=== PATIENT | female | born 1965 | race Caucasian/White ===

== ENCOUNTER 2017-04-22 14:55 | Inpatient (IN) | payer MEDICAID, MEDICARE | END 2017-04-23 08:00 | disposition home or self-care (01) | DRG 951 | LOC: VM.MS 14:55 | PROVIDERS: ADMIT Family Medicine ==

== ENCOUNTER 2017-04-23 08:49 | Day surgery (SDC) | payer MEDICARE, MEDICAID ==
[~2017-04-23 08:49] MED LIST: Lactated Ringers 1,000 ML IV SCH
[2017-04-23] MEDS ORDERED: fentaNYL 100 MCG/2 ML SDV ONE (09:24)
[2017-04-23] MEDS ORDERED: Midazolam 1 MG/ML 2 ML SDV ONE (09:24)
[2017-04-23] MEDS ORDERED: Propofol 200 MG/20 ML SDV ONE (09:25)
[2017-04-23 10:30] VITALS: BP 118/73
--- NOTE | 2017-04-24 08:19 | OR ---
PREOPERATIVE DIAGNOSIS: Screening colonoscopy. POSTOPERATIVE DIAGNOSIS: Normal colonoscopic exam. PROCEDURE PROPOSED: Total flexible colonoscopy. PROCEDURE DONE: Total flexible colonoscopy. INDICATION: This is a 52-year-old female referred for a recommended screening colonoscopy. She denies any symptomatology, and there is a negative family history for colon cancer. TECHNIQUE: The patient was brought to the endoscopy suite, placed in the left lateral decubitus position. She was given propofol per DIRECTOR LOSS PREVENTION. The flexible video colonoscope was then passed transanally and under visualization advanced to the cecum. Examination revealed the normal ascending, transverse, descending, sigmoid, and rectal colon. There was no evidence of any polyps, colitis, or other abnormalities. She tolerated the procedure very well. IMPRESSION: Essentially normal colonoscopic exam. PLAN: The patient is reassured. I felt she could wait 10 years before she needs a repeat exam. SCM: 04/23/2017 10:05:33 MODL: 04/23/2017 12:29:34 /[id number]
== END 2017-04-23 11:00 ==
LOC: VM.SDS 08:49
PROVIDERS: ATTEND Surgery
DX: Z12.11 Encounter for screening for malignant neoplasm of colon (principal); E66.9 Obesity, unspecified; Z79.899 Other long term (current) drug therapy
CPT/HCPCS: 00810; G0121; J2250; J2704; J3010; J7120

== ENCOUNTER 2022-11-02 08:38 | Emergency (ER) | payer MEDICARE, MEDICAID ==
[2022-11-02] MEDS ORDERED: Sodium Chloride 0.9% 10 ML Syringe FLUSH PRN (09:00)
[2022-11-02] MEDS: Albuterol/Ipratropium 3.0-0.5 MG/3 ML Neb Soln NEB ONE (09:20)
[2022-11-02 09:26] LABS: CHLORIDE,CL 103 mmol/L (98-107); ESTIMATED GFR 35 mL/min (>=60); SODIUM,NA 142 mmol/L (136-145)
[2022-11-02] MEDS ORDERED: Piperacillin/Tazobactam 4.5 GM in Sodium Chloride 0.9% 100 ML IV SCH (09:45)
[2022-11-02] MEDS: Piperacillin/Tazobactam 3.375 GM in Sodium Chloride 0.9% 100 ML IV SCH (10:05)
[2022-11-02] MEDS: Sodium Chloride 0.9% 1,000 ML IV ONE (10:05)
[2022-11-02 10:34] LABS: CORONAVIRUS COVID-19 NAA NEGATIVE (NEGATIVE); RESPIRATORY SYNCYTIAL VIR NAA NEGATIVE (NEGATIVE)
[2022-11-03] MEDS: Sodium Chloride 0.9% 1,000 ML IV ONE (15:08)
[2022-11-03 15:39] VITALS: BP 96/48; PULSE 98
== END 2022-11-02 11:27 | disposition short-term general hospital (02) ==
LOC: VM.ED 08:38
DX: A41.9 Sepsis, unspecified organism (principal); R65.21 Severe sepsis with septic shock; N17.9 Acute kidney failure, unspecified; J18.9 Pneumonia, unspecified organism; E66.9 Obesity, unspecified; Z68.30 Body mass index [BMI] 30.0-30.9, adult; Z20.822 Contact with and (suspected) exposure to COVID-19
CPT/HCPCS: 0241U; 36415; 71046; 80053; 83605; 84484; 85025; 85610; 87040; 94640; 96361; 96365; 99284; 99285-25; J2543; J7030; J7050; J7620-GY

== ENCOUNTER 2024-07-20 02:48 | Emergency (ER) | payer MEDICARE, MEDICAID ==
[2024-07-20 03:24] VITALS: PULSE 55
[2024-07-20 04:07] VITALS: BP 110/71
== END 2024-07-20 03:51 | disposition home or self-care (01) ==
LOC: VM.ED 02:48
DX: K62.3 Rectal prolapse (principal); E66.9 Obesity, unspecified; Z68.42 Body mass index [BMI] 45.0-49.9, adult; Z79.899 Other long term (current) drug therapy
CPT/HCPCS: 99284

== ENCOUNTER 2024-08-25 15:17 | Emergency (ER) | payer MEDICARE, MEDICAID ==
[2024-08-25 15:53] LABS: BASOPHILS PERCENT AUTO 0.3 % (0.2-1.2); EOSINOPHILS ABSOLUTE AUTO 0.3 x10^3/uL (0.0-0.5); EOSINOPHILS PERCENT AUTO 2.7 % (0.0-4.0); HEMATOCRIT 35.1 % (33.0-47.0); IMMATURE GRAN ABSOLUTE AUTO 0.01 x10^3/uL (0.00-0.07); LYMPHOCYTES ABSOLUTE AUTO 2.2 x10^3/uL (1.0-4.8); LYMPHOCYTES PERCENT AUTO 18.2 % (25.0-50.0); MEAN CORPUSCULAR HEMOGLOBIN 33.4 pg (26.0-32.0); MEAN CORPUSCULAR HGB CONC 34.2 g/dL (32.0-36.0); MEAN CORPUSCULAR VOLUME 97.8 fL (78.0-93.0); MONOCYTES ABSOLUTE AUTO 0.5 x10^3/uL (0.0-0.8); MONOCYTES PERCENT AUTO 4.5 % (2.0-11.0); NEUTROPHILS ABSOLUTE AUTO 8.8 x10^3/uL (1.8-7.7); NEUTROPHILS PERCENT AUTO 74.2 % (50.0-80.0); PLATELET COUNT,PLT 252 x10^3/uL (130-400); RED BLOOD CELL COUNT 3.59 x10^6/uL (4.00-5.50); WHITE BLOOD CELL COUNT,WBC 11.9 x10^3/uL (4.0-10.0)
[2024-08-25 16:13] LABS: A/G RATIO 0.55; ALANINE AMINOTRANSFERASE,ALT 20 U/L (14-59); ALBUMIN 2.7 g/dL (3.4-5.0); ALKALINE PHOSPHATASE 88 U/L (46-116); ASPARTATE AMNIOTRANSFERASE,AST 22 U/L (15-37); BILIRUBIN TOTAL 0.4 mg/dL (0.2-1.0); BLOOD UREA NITROGEN,BUN 12 mg/dL (7-18); CALCIUM 8.4 mg/dL (8.5-10.1); CARBON DIOXIDE,CO2 33 mmol/L (21-32); CHLORIDE,CL 96 mmol/L (98-107); CREATININE 1.1 mg/dL (0.55-1.02); GLUCOSE RANDOM 84 mg/dL (70-99); POTASSIUM,K 4.5 mmol/L (3.5-5.1); PROTEIN TOTAL,TP 7.6 g/dL (6.4-8.2); SODIUM,NA 134 mmol/L (136-145)
[2024-08-25 16:15] LABS: ANION GAP 9.5 mmol/L (5-15); ESTIMATED GFR 58 mL/min (>=60)
[2024-08-25] MEDS ORDERED: cefTRIAXone 1 GM Vial IVPUSH SCH (16:30)
[2024-08-25] MEDS: Take Home: Azithromycin 250 MG, 2 Tab Pack PO ONE (16:44)
[2024-08-25] MEDS: Azithromycin 250 MG Tab PO ONE (16:44)
[2024-08-25] MEDS: cefTRIAXone 1 GM Vial IM ONE (16:44)
[2024-08-25 17:17] VITALS: BP 120/72; PULSE 76
== END 2024-08-25 17:00 ==
LOC: VM.ED 15:17
DX: J69.0 Pneumonitis due to inhalation of food and vomit (principal); E66.9 Obesity, unspecified; Z79.899 Other long term (current) drug therapy; Z68.24 Body mass index [BMI] 24.0-24.9, adult
CPT/HCPCS: 36415; 80053; 83605; 85025; 87428; 96372; 99285; A9270; J0696; 71045

== ENCOUNTER 2024-09-04 11:29 | Inpatient (IN) | payer MEDICARE, MEDICAID ==
[2024-09-04] MEDS ORDERED: Sodium Chloride 0.9% 10 ML Syringe FLUSH PRN (12:24)
[2024-09-04] MEDS: Lactated Ringers 500 ML IV ONE (12:30)
[2024-09-04 12:44] LABS: MEAN CORPUSCULAR HEMOGLOBIN 33.3 pg (26.0-32.0); MEAN CORPUSCULAR HGB CONC 34.3 g/dL (32.0-36.0); MEAN CORPUSCULAR VOLUME 97.2 fL (78.0-93.0); PLATELET COUNT,PLT 311 x10^3/uL (130-400)
[2024-09-04 12:48] LABS: WHITE BLOOD CELL COUNT,WBC 28.9 x10^3/uL (4.0-10.0)
[2024-09-04 13:07] LABS: BAND PERCENT MAN 3 % (0-6); LYMPHOCYTES ABSOLUTE MAN 1.2 x10^3/uL (1.0-4.8); LYMPHOCYTES PERCENT MAN 4 % (25-50); MONOCYTES ABSOLUTE MAN 0.6 x10^3/uL (0.0-0.8); MONOCYTES PERCENT MAN 2 % (2-11); NEUTROPHILS ABSOLUTE MAN 27.2 x10^3/uL (1.8-7.7); PLATELET COUNT ESTIMATE ADEQUATE; SEG NEUTROPHILS PERCENT MAN 91 % (50-80)
[2024-09-04 13:12] LABS: A/G RATIO 0.56; ALANINE AMINOTRANSFERASE,ALT 26 U/L (14-59); ALBUMIN 2.5 g/dL (3.4-5.0); ALKALINE PHOSPHATASE 86 U/L (46-116); ASPARTATE AMNIOTRANSFERASE,AST 26 U/L (15-37); BILIRUBIN TOTAL 0.7 mg/dL (0.2-1.0); BLOOD UREA NITROGEN,BUN 15 mg/dL (7-18); CALCIUM 8.5 mg/dL (8.5-10.1); CARBON DIOXIDE,CO2 32 mmol/L (21-32); CHLORIDE,CL 96 mmol/L (98-107); CREATININE 1.4 mg/dL (0.55-1.02); GLUCOSE RANDOM 150 mg/dL (70-99); POTASSIUM,K 4.4 mmol/L (3.5-5.1); PRO B-TYPE NATRIUR PEPT,BNPPRO 1600 pg/mL (<=125); SODIUM,NA 136 mmol/L (136-145)
[2024-09-04 13:13] LABS: ANION GAP 12.4 mmol/L (5-15); ESTIMATED GFR 43 mL/min (>=60)
[2024-09-04 13:15] LABS: CORONAVIRUS COVID-19 NAA NEGATIVE (NEGATIVE); INFLUENZA A NAA NEGATIVE (NEGATIVE); INFLUENZA B NAA NEGATIVE (NEGATIVE)
[2024-09-04] MEDS ORDERED: Meropenem 1 GM in Sodium Chloride 0.9% 100 ML IV SCH (14:30)
[2024-09-04] MEDS: Lactated Ringers 1,000 ML IV SCH (14:50)
[2024-09-04] MEDS: Meropenem 500 MG in Sodium Chloride 0.9% 100 ML IV ONE (15:55)
[2024-09-04] MEDS ORDERED: Loratadine 10 MG Tab PO PRN (16:50)
[2024-09-04] MEDS ORDERED: Non-Formulary Medication 1 Each (Carboxymethylcellulose Sodium [Refresh Tears] 15 ML Drops EYEBOTH PRN (16:50)
[2024-09-04] MEDS ORDERED: guaiFENesin 100 MG/5 ML Soln 10 ML UD Cup PO PRN (16:50)
[2024-09-04] MEDS ORDERED: Acetaminophen 325 MG Tab PO PRN (16:50)
[2024-09-04] MEDS ORDERED: Docusate Sodium 100 MG Cap PO PRN (16:50)
[2024-09-04] MEDS: Levofloxacin/Dextrose 5%-Water 750 MG in Premix Bag 1 BAG IV SCH (17:00)
[2024-09-04] MEDS ORDERED: Lactulose Soln 10 GM/15 ML 15 ML UD Cup PO PRN (18:08)
[2024-09-04] MEDS ORDERED: Hypromellose 0.3% Ophth Soln 15 ML Bottle EYEBOTH PRN (18:14)
[2024-09-04 18:22] LABS: LACTIC ACID 3.1 mmol/L (0.4-2.0)
[2024-09-04] MEDS: Albuterol/Ipratropium 3.0-0.5 MG/3 ML Neb Soln NEB SCH (19:49)
[2024-09-04] MEDS: Acetaminophen 325 MG Tab PO SCH (20:06)
[2024-09-04] MEDS: Meropenem 500 MG in Sodium Chloride 0.9% 100 ML IV SCH (20:07)
[2024-09-04] MEDS: QUEtiapine 25 MG Tab PO SCH (20:07)
[2024-09-04] MEDS: traZODone 50 MG Tab PO SCH (20:08)
[2024-09-05] MEDS: methylPREDNISolone Sodium Succinate 125 MG/2 ML SDV ONE (07:07)
[2024-09-05] MEDS: Furosemide 40 MG/4 ML VIAL ONE (07:07)
[2024-09-05 07:58] LABS: HEMATOCRIT 35.8 % (33.0-47.0); HEMOGLOBIN 11.9 g/dL (12.0-16.0); MEAN CORPUSCULAR HEMOGLOBIN 33.3 pg (26.0-32.0); MEAN CORPUSCULAR HGB CONC 33.2 g/dL (32.0-36.0); MEAN CORPUSCULAR VOLUME 100.3 fL (78.0-93.0); RED BLOOD CELL COUNT 3.57 x10^6/uL (4.00-5.50); WHITE BLOOD CELL COUNT,WBC 15.7 x10^3/uL (4.0-10.0)
[2024-09-05] MEDS: VANCOmycin 1 GM in Sodium Chloride 0.9% 250 ML IV ONE (08:01)
[2024-09-05] MEDS ORDERED: Naloxone 0.4 MG/ML SDV IVPUSH PRN (08:16)
[2024-09-05 08:18] LABS: ANION GAP 8.6 mmol/L (5-15); CALCIUM 8.4 mg/dL (8.5-10.1); EST CRCL DRUG DOSING (CG) 43.51 mL/min; POTASSIUM,K 4.6 mmol/L (3.5-5.1)
[2024-09-05 08:22] LABS: HCO3 VENOUS,POC 35 mmol/L (22-29); O2 SATURATION VENOUS,POC 100 %; PCO2 VENOUS,POC 62 mmHg (41-51); PH VENOUS,POC 7.36 pH (7.32-7.43); PO2 VENOUS,POC 304 mmHg
[2024-09-05] MEDS: Morphine 2 MG/ML SYRINGE IVPUSH ONE ×2 (08:24→11:15)
[2024-09-05] MEDS: Albuterol/Ipratropium 3.0-0.5 MG/3 ML Neb Soln NEB PRN (08:30)
[2024-09-05] MEDS: Furosemide 20 MG/2 ML VIAL IV ONE (08:31)
[2024-09-05] MEDS: methylPREDNISolone Sodium Succinate 40 MG/1 ML SDV IVPUSH ONE (08:31)
[2024-09-05] MEDS ORDERED: Flumazenil 0.1 MG/ML 5 ML MDV IVPUSH PRN (09:49)
[2024-09-05] MEDS: LORazepam 2 MG/ML SDV IVPUSH PRN (10:01)
[2024-09-05] MEDS: Donepezil 10 MG Tab PO SCH (12:11)
[2024-09-05] MEDS: Famotidine 20 MG Tab PO SCH (12:20)
[2024-09-05] MEDS: Multivitamin Tab PO SCH (12:21)
[2024-09-05] MEDS: Allopurinol 100 MG Tab PO SCH (12:24)
[2024-09-05] MEDS: Enoxaparin 30 MG/0.3 ML Syringe SUBCUT SCH ×2 (12:32→12:34)
[2024-09-05] MEDS ORDERED: Sodium Chloride 0.9% Inhalation Soln 5 ML Neb INH PRN ×2 (15:10→17:36)
[2024-09-05] MEDS: Racepinephrine 2.25% 0.5 ML Neb Soln NEB ONE (15:10)
[2024-09-05] MEDS: Morphine 2 MG/ML SYRINGE IVPUSH PRN (20:22)
[2024-09-06 07:13] LABS: HEMATOCRIT 34.5 % (33.0-47.0); HEMOGLOBIN 10.9 g/dL (12.0-16.0); MEAN CORPUSCULAR HEMOGLOBIN 33.2 pg (26.0-32.0); MEAN CORPUSCULAR HGB CONC 31.6 g/dL (32.0-36.0); MEAN CORPUSCULAR VOLUME 105.2 fL (78.0-93.0); RED BLOOD CELL COUNT 3.28 x10^6/uL (4.00-5.50)
[2024-09-06 07:21] LABS: ANION GAP 6.8 mmol/L (5-15); CALCIUM 8.9 mg/dL (8.5-10.1); CREATININE 1.1 mg/dL (0.55-1.02); EST CRCL DRUG DOSING (CG) 39.55 mL/min; POTASSIUM,K 4.8 mmol/L (3.5-5.1)
[2024-09-06] MEDS: VANCOmycin 750 MG in Sodium Chloride 0.9% 250 ML IV SCH (08:31)
[2024-09-06] MEDS ORDERED: Simethicone 80 MG Tab.Chew PO PRN (08:32)
[2024-09-06] MEDS ORDERED: Mineral Oil/Petrolatum,White Crm 454 GM Jar TOP PRN (08:39)
[2024-09-06] MEDS: SODIUM FLUORIDE DENT SCH (11:07)
[2024-09-06] MEDS: Piperacillin/Tazobactam 4.5 GM in Sodium Chloride 0.9% 100 ML IV SCH (20:36)
[2024-09-06] MEDS: Acetaminophen 650 MG Supp RECTAL PRN (21:07)
[2024-09-06] MEDS: Racepinephrine 2.25% 0.5 ML Neb Soln NEB PRN (23:24)
[2024-09-07 07:00] LABS: BASOPHILS PERCENT AUTO 0.4 % (0.2-1.2); HEMATOCRIT 32.7 % (33.0-47.0); HEMOGLOBIN 10.3 g/dL (12.0-16.0); IMMATURE GRAN ABSOLUTE AUTO 0.03 x10^3/uL (0.00-0.07); LYMPHOCYTES ABSOLUTE AUTO 1.3 x10^3/uL (1.0-4.8); LYMPHOCYTES PERCENT AUTO 19.7 % (25.0-50.0); MEAN CORPUSCULAR HEMOGLOBIN 33.1 pg (26.0-32.0); MEAN CORPUSCULAR HGB CONC 31.5 g/dL (32.0-36.0); MEAN CORPUSCULAR VOLUME 105.1 fL (78.0-93.0); MONOCYTES ABSOLUTE AUTO 0.6 x10^3/uL (0.0-0.8); MONOCYTES PERCENT AUTO 9.1 % (2.0-11.0); NEUTROPHILS ABSOLUTE AUTO 4.8 x10^3/uL (1.8-7.7); NEUTROPHILS PERCENT AUTO 70.4 % (50.0-80.0); PLATELET COUNT,PLT 238 x10^3/uL (130-400); RED BLOOD CELL COUNT 3.11 x10^6/uL (4.00-5.50); WHITE BLOOD CELL COUNT,WBC 6.8 x10^3/uL (4.0-10.0)
[2024-09-07 07:14] LABS: CALCIUM 8.7 mg/dL (8.5-10.1); CREATININE 1.1 mg/dL (0.55-1.02); EST CRCL DRUG DOSING (CG) 39.55 mL/min; POTASSIUM,K 4.6 mmol/L (3.5-5.1)
[2024-09-07 07:16] LABS: ANION GAP 5.6 mmol/L (5-15)
[2024-09-07] MEDS: Furosemide 20 MG/2 ML VIAL IV SCH (11:10)
[2024-09-07] MEDS: Levofloxacin/Dextrose 5%-Water 750 MG in Premix Bag 1 BAG IV SCH (15:30)
[2024-09-08 06:50] LABS: HEMATOCRIT 35.2 % (33.0-47.0); HEMOGLOBIN 11.4 g/dL (12.0-16.0); MEAN CORPUSCULAR HEMOGLOBIN 32.9 pg (26.0-32.0); MEAN CORPUSCULAR HGB CONC 32.4 g/dL (32.0-36.0); MEAN CORPUSCULAR VOLUME 101.7 fL (78.0-93.0); RED BLOOD CELL COUNT 3.46 x10^6/uL (4.00-5.50); WHITE BLOOD CELL COUNT,WBC 4.8 x10^3/uL (4.0-10.0)
[2024-09-08 10:26] LABS: CALCIUM 8.8 mg/dL (8.5-10.1); CREATININE 1.3 mg/dL (0.55-1.02); EST CRCL DRUG DOSING (CG) 32.63 mL/min; POTASSIUM,K 3.8 mmol/L (3.5-5.1)
[2024-09-08 10:27] LABS: ANION GAP 9.8 mmol/L (5-15)
[2024-09-08] MEDS: Lactated Ringers 1,000 ML IV SCH (18:59)
[2024-09-09 06:48] LABS: BASOPHILS ABSOLUTE AUTO 0.1 x10^3/uL (0.0-0.2); BASOPHILS PERCENT AUTO 1.6 % (0.2-1.2); EOSINOPHILS PERCENT AUTO 0.8 % (0.0-4.0); HEMATOCRIT 34.8 % (33.0-47.0); HEMOGLOBIN 11.2 g/dL (12.0-16.0); IMMATURE GRAN ABSOLUTE AUTO 0.02 x10^3/uL (0.00-0.07); LYMPHOCYTES ABSOLUTE AUTO 1.3 x10^3/uL (1.0-4.8); LYMPHOCYTES PERCENT AUTO 32.6 % (25.0-50.0); MEAN CORPUSCULAR HEMOGLOBIN 32.8 pg (26.0-32.0); MEAN CORPUSCULAR HGB CONC 32.2 g/dL (32.0-36.0); MEAN CORPUSCULAR VOLUME 102.1 fL (78.0-93.0); MONOCYTES ABSOLUTE AUTO 0.5 x10^3/uL (0.0-0.8); MONOCYTES PERCENT AUTO 11.9 % (2.0-11.0); NEUTROPHILS PERCENT AUTO 52.6 % (50.0-80.0); PLATELET COUNT,PLT 205 x10^3/uL (130-400); RED BLOOD CELL COUNT 3.41 x10^6/uL (4.00-5.50); WHITE BLOOD CELL COUNT,WBC 3.9 x10^3/uL (4.0-10.0)
[2024-09-09 07:03] LABS: CALCIUM 8.7 mg/dL (8.5-10.1); CREATININE 1.3 mg/dL (0.55-1.02); EST CRCL DRUG DOSING (CG) 31.19 mL/min; POTASSIUM,K 3.3 mmol/L (3.5-5.1)
[2024-09-09 07:04] LABS: ANION GAP 6.3 mmol/L (5-15)
[2024-09-09 14:21] LABS: CALCIUM 8.9 mg/dL (8.5-10.1); CREATININE 1.3 mg/dL (0.55-1.02); EST CRCL DRUG DOSING (CG) 31.19 mL/min
[2024-09-09] MEDS: Potassium Chloride Riders 20 MEQ in Premix Bag 1 BAG IV SCH (17:23)
[2024-09-10 07:01] LABS: HEMATOCRIT 35.4 % (33.0-47.0); HEMOGLOBIN 11.1 g/dL (12.0-16.0); MEAN CORPUSCULAR HEMOGLOBIN 32.6 pg (26.0-32.0); MEAN CORPUSCULAR HGB CONC 31.4 g/dL (32.0-36.0); MEAN CORPUSCULAR VOLUME 103.8 fL (78.0-93.0); RED BLOOD CELL COUNT 3.41 x10^6/uL (4.00-5.50); WHITE BLOOD CELL COUNT,WBC 4.2 x10^3/uL (4.0-10.0)
[2024-09-10 07:16] LABS: CALCIUM 8.4 mg/dL (8.5-10.1); CREATININE 1.2 mg/dL (0.55-1.02); EST CRCL DRUG DOSING (CG) 34.7 mL/min
[2024-09-11 08:43] LABS: A/G RATIO 0.49; ALBUMIN 2.3 g/dL (3.4-5.0); ANION GAP 3.2 mmol/L (5-15); BILIRUBIN TOTAL 0.2 mg/dL (0.2-1.0); CALCIUM 8.4 mg/dL (8.5-10.1); CREATININE 1.2 mg/dL (0.55-1.02); EST CRCL DRUG DOSING (CG) 35.13 mL/min; MAGNESIUM 2.2 mg/dL (1.8-2.4); POTASSIUM,K 4.2 mmol/L (3.5-5.1)
[2024-09-12 08:32] LABS: BASOPHILS ABSOLUTE AUTO 0.1 x10^3/uL (0.0-0.2); BASOPHILS PERCENT AUTO 1.4 % (0.2-1.2); EOSINOPHILS ABSOLUTE AUTO 0.4 x10^3/uL (0.0-0.5); EOSINOPHILS PERCENT AUTO 9.5 % (0.0-4.0); HEMATOCRIT 36.9 % (33.0-47.0); IMMATURE GRAN ABSOLUTE AUTO 0.02 x10^3/uL (0.00-0.07); LYMPHOCYTES ABSOLUTE AUTO 1.4 x10^3/uL (1.0-4.8); LYMPHOCYTES PERCENT AUTO 37.1 % (25.0-50.0); MEAN CORPUSCULAR HGB CONC 32.5 g/dL (32.0-36.0); MEAN CORPUSCULAR VOLUME 101.4 fL (78.0-93.0); MONOCYTES ABSOLUTE AUTO 0.3 x10^3/uL (0.0-0.8); MONOCYTES PERCENT AUTO 8.1 % (2.0-11.0); NEUTROPHILS ABSOLUTE AUTO 1.6 x10^3/uL (1.8-7.7); NEUTROPHILS PERCENT AUTO 43.4 % (50.0-80.0); PLATELET COUNT,PLT 200 x10^3/uL (130-400); RED BLOOD CELL COUNT 3.64 x10^6/uL (4.00-5.50); WHITE BLOOD CELL COUNT,WBC 3.7 x10^3/uL (4.0-10.0)
[2024-09-12 08:52] LABS: A/G RATIO 0.62; ALBUMIN 2.4 g/dL (3.4-5.0); ANION GAP 4.4 mmol/L (5-15); BILIRUBIN TOTAL 0.2 mg/dL (0.2-1.0); CALCIUM 8.2 mg/dL (8.5-10.1); CREATININE 1.1 mg/dL (0.55-1.02); EST CRCL DRUG DOSING (CG) 38.45 mL/min; POTASSIUM,K 4.4 mmol/L (3.5-5.1); PROTEIN TOTAL,TP 6.3 g/dL (6.4-8.2)
[2024-09-12 14:45] VITALS: BP 100/70; PULSE 88
== END 2024-09-12 13:00 | DRG 871 ==
LOC: VM.ED 11:29 → VM.MS 14:14
PROVIDERS: ADMIT Nurse Practitioner Family; ATTEND Family Medicine
PROC: 5A0955A Assistance with Respiratory Ventilation, Greater than 96 Consecutive Hours, High Flow/Velocity Cannula (ICD-10-PCS; principal; 2024-09-06)
DX: A41.9 Sepsis, unspecified organism (principal); J18.9 Pneumonia, unspecified organism; J69.0 Pneumonitis due to inhalation of food and vomit; J96.01 Acute respiratory failure with hypoxia; E87.20 Acidosis, unspecified; E87.0 Hyperosmolality and hypernatremia; R65.20 Severe sepsis without septic shock; F02.80 Dementia in other diseases classified elsewhere, unspecified severity, without behavioral disturbance, psychotic disturbance, mood disturbance, and anxiety; M19.90 Unspecified osteoarthritis, unspecified site; H26.9 Unspecified cataract; E66.9 Obesity, unspecified; G30.0 Alzheimer's disease with early onset; N18.2 Chronic kidney disease, stage 2 (mild); I27.20 Pulmonary hypertension, unspecified; K59.09 Other constipation; K21.9 Gastro-esophageal reflux disease without esophagitis; J31.0 Chronic rhinitis; E79.0 Hyperuricemia without signs of inflammatory arthritis and tophaceous disease; K62.3 Rectal prolapse; Z66 Do not resuscitate; Z79.2 Long term (current) use of antibiotics; Z79.899 Other long term (current) drug therapy; Z68.26 Body mass index [BMI] 26.0-26.9, adult; Q90.9 Down syndrome, unspecified; Q30.0 Choanal atresia
CPT/HCPCS: 0240U; 36415; 71045; 80048; 80053; 80202; 82803; 83605; 83735; 83880; 85025; 85027; 87040; 87070; 87493; 92526-GN; 92610-GN; 94640; 94660; 94760; 96360; 99232; 99232-GT; 99238; 99284; 99285-25; A9270-GY; J1650; J1940; J1956; J2060; J2185; J2270; J2543; J2919; J3370; J3480; J3490; J7050; J7120; J7620-GY

== ENCOUNTER 2024-09-18 23:50 | Inpatient (IN) | payer MEDICARE, MEDICAID ==
[~2024-09-18 23:50] MED LIST changes: -Lactated Ringers 1,000 ML IV SCH; +Sodium Chloride 0.9% 10 ML Syringe FLUSH PRN
[2024-09-19 00:11] LABS: BASOPHILS ABSOLUTE AUTO 0.1 x10^3/uL (0.0-0.2); BASOPHILS PERCENT AUTO 0.6 % (0.2-1.2); EOSINOPHILS ABSOLUTE AUTO 0.2 x10^3/uL (0.0-0.5); EOSINOPHILS PERCENT AUTO 1.7 % (0.0-4.0); HEMATOCRIT 35.4 % (33.0-47.0); IMMATURE GRAN ABSOLUTE AUTO 0.01 x10^3/uL (0.00-0.07); LYMPHOCYTES ABSOLUTE AUTO 2.9 x10^3/uL (1.0-4.8); LYMPHOCYTES PERCENT AUTO 29.3 % (25.0-50.0); MEAN CORPUSCULAR HEMOGLOBIN 33.2 pg (26.0-32.0); MEAN CORPUSCULAR HGB CONC 33.9 g/dL (32.0-36.0); MEAN CORPUSCULAR VOLUME 98.1 fL (78.0-93.0); MONOCYTES ABSOLUTE AUTO 0.7 x10^3/uL (0.0-0.8); MONOCYTES PERCENT AUTO 6.5 % (2.0-11.0); NEUTROPHILS ABSOLUTE AUTO 6.2 x10^3/uL (1.8-7.7); NEUTROPHILS PERCENT AUTO 61.8 % (50.0-80.0); PLATELET COUNT,PLT 267 x10^3/uL (130-400); RED BLOOD CELL COUNT 3.61 x10^6/uL (4.00-5.50)
[2024-09-19 00:28] LABS: LACTIC ACID 1.7 mmol/L (0.4-2.0)
[2024-09-19 00:33] LABS: A/G RATIO 0.53; ALANINE AMINOTRANSFERASE,ALT 19 U/L (14-59); ALBUMIN 2.5 g/dL (3.4-5.0); ALKALINE PHOSPHATASE 92 U/L (46-116); ASPARTATE AMNIOTRANSFERASE,AST 24 U/L (15-37); BILIRUBIN TOTAL 0.2 mg/dL (0.2-1.0); BLOOD UREA NITROGEN,BUN 14 mg/dL (7-18); C-REACTIVE PROTEIN 6.29 mg/dL (<=0.50); CALCIUM 8.7 mg/dL (8.5-10.1); CARBON DIOXIDE,CO2 32 mmol/L (21-32); CHLORIDE,CL 101 mmol/L (98-107); CREATININE 1.2 mg/dL (0.55-1.02); GLUCOSE RANDOM 130 mg/dL (70-99); POTASSIUM,K 4.4 mmol/L (3.5-5.1); PRO B-TYPE NATRIUR PEPT,BNPPRO 1192 pg/mL (<=125); PROTEIN TOTAL,TP 7.2 g/dL (6.4-8.2); SODIUM,NA 139 mmol/L (136-145)
[2024-09-19 00:38] LABS: ANION GAP 10.4 mmol/L (5-15); ESTIMATED GFR 52 mL/min (>=60)
[2024-09-19] MEDS: Clindamycin Phosphate in D5W 600 MG in Premix Bag 1 BAG IV ONE (01:22)
[2024-09-19] MEDS: cefTRIAXone 2 GM Vial IVPUSH ONE (01:22)
[2024-09-19] MEDS ORDERED: Acetaminophen 325 MG Tab PO PRN (03:17)
[2024-09-19] MEDS ORDERED: Acetaminophen 650 MG Supp RECTAL PRN (03:17)
[2024-09-19] MEDS ORDERED: Non-Formulary Medication 1 Each (Carboxymethylcellulose Sodium [Refresh Tears] 15 ML Drops EYEBOTH PRN (03:27)
[2024-09-19] MEDS: Ampicillin/Sulbactam Na 3 GM in Sodium Chloride 0.9% 100 ML IV SCH (04:02)
[2024-09-19 05:00] LABS: BASE EXCESS ARTERIAL,POC 5 mmol/L ((-2)-3); HCO3 ARTERIAL,POC 32.5 mmol/L (21-28); O2 SATURATION ARTERIAL,POC 97.9 % (94-98); PCO2 ARTERIAL,POC 83 mmHg (35-48); PO2 ARTERIAL,POC 130 mmHg (83-108); TCO2 ARTERIAL,POC 32.6 mmol/L (22-29)
[2024-09-19 05:10] LABS: LACTIC ACID 1.7 mmol/L (0.4-2.0)
[2024-09-19] MEDS: Heparin Sodium 5,000 Units/ML Vial SUBCUT SCH (05:29)
[2024-09-19] MEDS: Albuterol/Ipratropium 3.0-0.5 MG/3 ML Neb Soln NEB PRN (05:45)
[2024-09-19] MEDS ORDERED: methylPREDNISolone Sod Succ 125 MG in Sodium Chloride 0.9% 100 ML IV SCH (07:00)
[2024-09-19 07:28] LABS: BASE EXCESS ARTERIAL,POC 5 mmol/L ((-2)-3); O2 SATURATION ARTERIAL,POC 98.3 % (94-98); PCO2 ARTERIAL,POC 74 mmHg (35-48); PH ARTERIAL,POC 7.25 pH (7.35-7.45); PO2 ARTERIAL,POC 133 mmHg (83-108); TCO2 ARTERIAL,POC 31.9 mmol/L (22-29)
[2024-09-19] MEDS: methylPREDNISolone Sod Succ 125 MG in Sodium Chloride 0.9% 100 ML IV SCH (08:06)
[2024-09-19] MEDS: Furosemide 40 MG/4 ML VIAL ONE (08:07)
[2024-09-19] MEDS: Furosemide 20 MG/2 ML VIAL IV ONE (08:08)
[2024-09-19 08:11] LABS: BASOPHILS PERCENT AUTO 0.1 % (0.2-1.2); HEMATOCRIT 37.7 % (33.0-47.0); HEMOGLOBIN 12.3 g/dL (12.0-16.0); IMMATURE GRAN ABSOLUTE AUTO 0.06 x10^3/uL (0.00-0.07); LYMPHOCYTES ABSOLUTE AUTO 0.5 x10^3/uL (1.0-4.8); LYMPHOCYTES PERCENT AUTO 3.1 % (25.0-50.0); MEAN CORPUSCULAR HGB CONC 32.6 g/dL (32.0-36.0); MEAN CORPUSCULAR VOLUME 101.1 fL (78.0-93.0); MONOCYTES ABSOLUTE AUTO 0.6 x10^3/uL (0.0-0.8); MONOCYTES PERCENT AUTO 3.8 % (2.0-11.0); NEUTROPHILS ABSOLUTE AUTO 14.3 x10^3/uL (1.8-7.7); NEUTROPHILS PERCENT AUTO 92.6 % (50.0-80.0); PLATELET COUNT,PLT 320 x10^3/uL (130-400); RED BLOOD CELL COUNT 3.73 x10^6/uL (4.00-5.50)
[2024-09-19 08:34] LABS: WHITE BLOOD CELL COUNT,WBC 15.5 x10^3/uL (4.0-10.0)
[2024-09-19 08:36] LABS: A/G RATIO 0.49; ALBUMIN 2.5 g/dL (3.4-5.0); BILIRUBIN TOTAL 0.2 mg/dL (0.2-1.0); CALCIUM 8.7 mg/dL (8.5-10.1); CREATININE 1.3 mg/dL (0.55-1.02); EST CRCL DRUG DOSING (CG) 33.47 mL/min; POTASSIUM,K 4.5 mmol/L (3.5-5.1); PROTEIN TOTAL,TP 7.6 g/dL (6.4-8.2)
[2024-09-19 08:40] LABS: ANION GAP 10.5 mmol/L (5-15)
[2024-09-19] MEDS ORDERED: Enoxaparin 40 MG/0.4 ML Syringe SUBCUT SCH (09:00)
[2024-09-19] MEDS: Sodium Chloride 0.9% 1,000 ML IV SCH (10:00)
[2024-09-19] MEDS: Enoxaparin 60 MG/0.6 ML Syringe SUBCUT SCH (10:16)
[2024-09-19] MEDS: Morphine 2 MG/ML SYRINGE IVPUSH PRN (10:45)
[2024-09-19] MEDS ORDERED: Flumazenil 0.1 MG/ML 5 ML MDV IVPUSH PRN (15:18)
[2024-09-19] MEDS: LORazepam 2 MG/ML SDV IVPUSH PRN (15:44)
[2024-09-19 19:30] LABS: APPEARANCE,URINE SLIGHTLY CLOUDY (CLEAR); BILIRUBIN,URINE NEGATIVE (NEGATIVE); COLOR,URINE YELLOW (YELLOW); GLUCOSE,URINE NEGATIVE (NEGATIVE); KETONES,URINE NEGATIVE (NEGATIVE); LEUKOCYTE ESTERASE,URINE NEGATIVE (NEGATIVE); NITRITE,URINE NEGATIVE (NEGATIVE); OCCULT BLOOD,URINE MODERATE (NEGATIVE); PH,URINE 5.5 (5.0-8.0); PROTEIN,URINE 100 mg/dL (NEGATIVE); UROBILINOGEN,URINE 0.2 EU/dL (0.2)
[2024-09-19 19:34] LABS: BACTERIA,URINE RARE /HPF (NOT SEEN); GRANULAR CASTS,URINE FEW; HYALINE CASTS,URINE FEW; MUCUS,URINE FEW /LPF (NOT SEEN); RBC,URINE 50-75 /HPF (NOT SEEN); SQUAMOUS EPITHELIAL CELLS,UR FEW /HPF (NOT SEEN); WBC,URINE 0-5 /HPF (NOT SEEN)
[2024-09-20] MEDS: Furosemide 40 MG/4 ML VIAL IVPUSH ONE (00:26)
[2024-09-20] MEDS: VANCOmycin 1 GM in Sodium Chloride 0.9% 250 ML IV ONE (01:13)
[2024-09-20] MEDS: Cefepime 2 GM in Sodium Chloride 0.9% 100 ML IV SCH (01:19)
[2024-09-20 05:31] VITALS: BP 89/45; PULSE 91
[2024-09-20 07:45] LABS: HEMATOCRIT 39.9 % (33.0-47.0); MEAN CORPUSCULAR HEMOGLOBIN 33.2 pg (26.0-32.0); MEAN CORPUSCULAR HGB CONC 30.1 g/dL (32.0-36.0); MEAN CORPUSCULAR VOLUME 110.5 fL (78.0-93.0); PLATELET COUNT,PLT 292 x10^3/uL (130-400); RED BLOOD CELL COUNT 3.61 x10^6/uL (4.00-5.50)
[2024-09-20 07:47] LABS: A/G RATIO 0.46; ALBUMIN 2.3 g/dL (3.4-5.0); BILIRUBIN TOTAL 0.2 mg/dL (0.2-1.0); C-REACTIVE PROTEIN 10.25 mg/dL (<=0.50); CALCIUM 8.2 mg/dL (8.5-10.1); CREATININE 1.8 mg/dL (0.55-1.02); EST CRCL DRUG DOSING (CG) 23.37 mL/min; POTASSIUM,K 5.5 mmol/L (3.5-5.1); PROTEIN TOTAL,TP 7.3 g/dL (6.4-8.2); WHITE BLOOD CELL COUNT,WBC 20.4 x10^3/uL (4.0-10.0)
[2024-09-20 07:49] LABS: ANISOCYTOSIS 1+ SLIGHT; BAND PERCENT MAN 3 % (0-6); LYMPHOCYTES ABSOLUTE MAN 1.8 x10^3/uL (1.0-4.8); LYMPHOCYTES PERCENT MAN 9 % (25-50); MONOCYTES ABSOLUTE MAN 1.8 x10^3/uL (0.0-0.8); MONOCYTES PERCENT MAN 9 % (2-11); NEUTROPHILS ABSOLUTE MAN 16.7 x10^3/uL (1.8-7.7); PLATELET COUNT ESTIMATE ADEQUATE; SEG NEUTROPHILS PERCENT MAN 79 % (50-80)
[2024-09-20 07:50] LABS: ANION GAP 5.5 mmol/L (5-15)
[2024-09-21 05:07] LABS: BORDETELLA PARAPERT IS1001 Not Detected (Not Detected)
== END 2024-09-20 08:02 | disposition expired | DRG 177 ==
LOC: VM.ED 23:50 → VM.MS 09-19 01:25
PROVIDERS: ADMIT Internal Medicine; ATTEND Family Medicine
PROC: 4A133R1 Monitoring of Arterial Saturation, Peripheral, Percutaneous Approach (ICD-10-PCS; principal; 2024-09-19)
PROC: 0T9B70Z Drainage of Bladder with Drainage Device, Via Natural or Artificial Opening (ICD-10-PCS; 2024-09-19)
PROC: 5A09357 Assistance with Respiratory Ventilation, Less than 24 Consecutive Hours, Continuous Positive Airway Pressure (ICD-10-PCS; 2024-09-19)
DX: J96.90 Respiratory failure, unspecified, unspecified whether with hypoxia or hypercapnia (principal); J69.0 Pneumonitis due to inhalation of food and vomit; R79.89 Other specified abnormal findings of blood chemistry; J96.01 Acute respiratory failure with hypoxia; I24.89 Other forms of acute ischemic heart disease; N17.9 Acute kidney failure, unspecified; Z66 Do not resuscitate; R00.1 Bradycardia, unspecified; M19.90 Unspecified osteoarthritis, unspecified site; E66.9 Obesity, unspecified; Q90.9 Down syndrome, unspecified; N18.9 Chronic kidney disease, unspecified; G30.9 Alzheimer's disease, unspecified; F02.80 Dementia in other diseases classified elsewhere, unspecified severity, without behavioral disturbance, psychotic disturbance, mood disturbance, and anxiety; I50.9 Heart failure, unspecified; Z79.899 Other long term (current) drug therapy; Z68.21 Body mass index [BMI] 21.0-21.9, adult
CPT/HCPCS: 36415; 36600; 71046; 71250; 80053; 80202; 81001; 82803; 82947; 83605; 83880; 84145; 84484; 85025; 85379; 86140; 87040; 87070; 87205; 87486; 87581; 87633; 87798; 94640; 94760; 99223; 99223-GT; 99284; 99285; J0295; J0692; J0696; J0736; J1644; J1650; J1940; J2060; J2270; J2919; J3490; J7030; J7050; J7620-GY; Q3014